=== PATIENT | male | born 1995 | race African-American/Black ===

== ENCOUNTER 2022-10-27 08:21 | Emergency (ER) | payer BC ==
[~2022-10-27] VITALS: Ht 175.3 cm; Wt 77.0 kg
[2022-10-27 08:30] VITALS: BP 122/77; PULSE 52; RESP 18; TEMP 98; O2SAT 100
[2022-10-27] MEDS ORDERED: NAPR-681 MT (09:42)
== END 2022-10-27 10:06 | disposition home or self-care (01) ==
LOC: ER 08:21
DX: M25.531 Pain in right wrist (principal); J45.909 Unspecified asthma, uncomplicated
CPT/HCPCS: 29125; 73100; 73110; 99284

== ENCOUNTER 2023-02-28 01:02 | Emergency (ER) | payer BC ==
[~2023-02-28] VITALS: Ht 175.3 cm; Wt 78.0 kg
[~2023-02-28 01:02] MED LIST: NAPR-681 MT
[2023-02-28 01:18] VITALS: TEMP 98.4; O2SAT 99
[2023-02-28 02:45] VITALS: BP 129/82; PULSE 58; RESP 18
[2023-02-28] MEDS ORDERED: KETOROLAC 30MG/ML VIAL IM ONE (02:45)
[2023-02-28] MEDS ORDERED: CIPHCO RIGHT EAR (02:46)
[2023-02-28] MEDS ORDERED: AMOX500T2 MT (02:46)
[2023-02-28] MEDS ORDERED: IBUP-2030 MT (02:46)
== END 2023-02-28 04:58 | disposition home or self-care (01) ==
LOC: ER 01:02
DX: H66.92 Otitis media, unspecified, left ear (principal); J45.909 Unspecified asthma, uncomplicated
CPT/HCPCS: 99283; 96372; J1885